=== PATIENT | male | born 1995 | race Caucasian/White ===

== ENCOUNTER 2020-05-06 12:26 | Emergency (ER) | payer SELFPAY ==
--- NOTE | 2020-05-06 12:31 | ED.GENADULT ---
HPI - General Adult General Chief complaint: Eye Problems Stated complaint: left eye red/swollen Time Seen by Provider: 05/06/20 12:40 Source: patient Mode of arrival: ambulatory Limitations: no limitations History of Present Illness HPI narrative: 24-year-old male patient presents to the [facility] with complaints of left upper eyelid swelling that started yesterday. Patient states he does have history of blepharitis and states he typically cleans his lashes every day but for the past 2 days he has forgotten to clean them. Patient has a little bit of tenderness to the left eye but denies any vision changes. Denies any discharge that he is aware of. Denies wearing any contacts. Related Data Allergies Allergy/AdvReac Type Severity Reaction Status Date / Time No Known Allergies Allergy Verified 05/06/20 12:41 Review of Systems Review of Systems: Narrative: CONSTITUTIONAL: Denies fever, chills, or sweats. EYES: Denies visual changes, redness, or discharge. Positive swelling and redness to left upper eyelid x1 day ENT: Denies rhinorrhea, congestion, sore throat, or otalgia. CARDIOVASCULAR: Denies chest pain, palpitations, or edema. RESPIRATORY: Denies cough or dyspnea. GASTROINTESTINAL: Denies abdominal pain, nausea, vomiting, or diarrhea. GENITOURINARY: Denies dysuria or hematuria. SKIN: Denies rash or itching. MUSCULOSKELETAL: Denies back pain, joint pain, or myalgia. NEUROLOGIC: Denies headache, numbness, or weakness. PSYCHIATRIC: Denies anxiety or depression. PMFSH Comments At the time of my signature I agree with nursing past medical history, surgical, social, and family history. There is no relevant family history pertinent to the presenting complaint. Exam Narrative: Exam Narrative: GENERAL: Well-appearing, well-nourished, and in no acute distress. HEAD: Normocephalic, atraumatic. EYES: PERRLA and EOM intact without limitation or complaint of pain, no periorbital soft tissue swelling. Patient has erythema and swelling to the left upper eyelid. Patient does have an obvious hordeolum noted towards the inner canthus Antis of the left upper lid with tenderness on palpation to this area. No warmth noted, no obvious deformity. No crusting or swelling.no tearing or draining.No photophobia. No nystagmus No FB or lesion on lid eversion. Corneas grossly clear, no obvious FB or hyphens/hypopyon. No injection to sclera. Lids and lashes clear. ENT: Nares clear, no rhinorrhea or epistaxis. Mucous membranes moist. NECK: Supple. No lymphadenopathy CHEST: Clear to auscultation. No respiratory distress. HEART: Regular rate and rhythm. No murmur heard. Normal peripheral pulses. ABDOMEN: Soft, nontender, nondistended, normal active bowel sounds. EXTREMITIES: Normal range of motion. No edema. SKIN: Warm, dry, no rash. NEURO: No focal deficits. Alert and oriented x3. Course Vital Signs Vital signs: Vital Signs Temperature 37.5 C 05/06/20 12:33 Pulse Rate 69 05/06/20 12:33 Respiratory Rate 18 05/06/20 12:33 Blood Pressure 117/59 L 05/06/20 12:33 Pulse Oximetry 100 05/06/20 12:33 Temperature 37.5 C 05/06/20 12:33 Pulse Rate 69 05/06/20 12:33 Respiratory Rate 18 05/06/20 12:33 Blood Pressure 117/59 L 05/06/20 12:33 Pulse Oximetry 100 05/06/20 12:33 Vital signs reviewed. Medical Decision Making Differential Diagnosis Differential Diagnosis: Differential diagnosis: Conjunctivitis, foreign body, corneal ulcer, Keratitis, dendritic lesions, corneal abrasion, very orbital infection, orbital cellulitis, orbital pain, acute narrow angle glaucoma, detached retina, central retinal artery occlusion, complete hyphema, vitreous hemorrhage, optic neuritis, globe disruption Discussed with patient we will discharge him home with a antibiotic ointment him he should use warm compresses to the eye and continue to clean the lids as he does normally daily. Patient verbalized understanding denies any other questions or c
[2020-05-06 12:33] VITALS: BP 117/59; PULSE 69; RESP 18; TEMP 37.5; O2SAT 100
== END 2020-05-06 12:54 | disposition home or self-care (01) ==
PROVIDERS: Emergency Provider Nurse Practitioner Family
DX: H00.014 Hordeolum externum left upper eyelid (principal)
CPT/HCPCS: 99213; G0463